=== PATIENT | female | born 1995 | race Caucasian/White ===

== ENCOUNTER 2017-08-17 20:06 | Emergency (ER) | payer OTHER ==
[~2017-08-17] VITALS: Ht 152.4 cm; Wt 51.3 kg
--- NOTE | 2017-08-17 20:15 | NUR ---
PT AMBULATORY TO ER BED 10. C/O R FLANK/ R RIB AREA PAIN X 4 DAYS. DENIES DYSURIA/HEMATURIA. PT IS ALSO C/O COUGH X 3 WEEKS. GOWNED AND PLACED ON MONITOR. VSS. AWAITINGMD EVAL.
--- NOTE | 2017-08-17 20:32 | NUR ---
DR MULLINS AT BEDSIDE FOR EVAL.
--- NOTE | 2017-08-17 20:33 | NUR ---
IV LINE STARTED BLOOD DRAW AND SENT TO LAB.
[2017-08-17] MEDS ORDERED: KETOROLAC TROMETHAMINE INJ 30 MG/ML VIAL ONE (20:37)
[2017-08-17 20:38] LABS: APPEARANCE,URINE Slightly Cloudy (CLEAR); BASOPHILS # (AUTO) 0.1 /CMM (0.0-0.2); BASOPHILS % (AUTO) 0.4 % (0.0-2.0); BILIRUBIN,URINE Negative (NEGATIVE); BLOOD, URINE Trace-lysed Ery/uL (NEGATIVE); COLOR,URINE Yellow (YELLOW); EOSINOPHILS % (AUTO) 7.6 % (0.0-6.0); HEMATOCRIT 39 % (33-45); HEMOGLOBIN 13.2 g/dL (11.5-14.8); KETONES,URINE Negative (NEGATIVE); LEUKOCYTE ESTERASE ,URINE Trace (NEGATIVE); LYMPHOCYTES % (AUTO) 30.3 % (20.0-44.0); MEAN CORPUSCULAR HEMOGLOBIN 30 PG (26.0-33.0); MEAN CORPUSCULAR HGB CONC 34 g/dl (31.0-36.0); MEAN CORPUSCULAR VOLUME 89 fL (82-100); MONOCYTES # (AUTO) 0.9 /CMM (0.1-1.30); MONOCYTES % (AUTO) 7.1 % (2.0-12.0); NEUTROPHILS # (AUTO) 7.2 /CMM (1.8-8.9); NEUTROPHILS % (AUTO) 54.6 % (43.0-81.0); NITRITE, URINE Negative (NEGATIVE); PLATELET COUNT (AUTO) 248 /CMM (150-450); PROTEIN,URINE Negative (NEGATIVE); RDW COEFFICIENT OF VARIATION 12.2 (11.5-15.0); UGLUCOSE Negative (NEGATIVE); WHITE BLOOD COUNT (AUTO) 13.2 K/uL (4.3-11.0)
[2017-08-17 20:41] LABS: BACTERIA,URINE Few /HPF (None Seen); SQUAMOUS EPITHELIAL CELL,UR Few /HPF (None Seen)
[2017-08-17 20:48] LABS: CALCIUM, SERUM 8.9 mg/dL (8.5-10.1); CREATININE 0.6 mg/dL (0.6-1.3); POTASSIUM 4.1 mmol/L (3.5-5.1)
[2017-08-17 20:53] LABS: ALBUMIN 4.1 g/dL (3.4-5.0); BILIRUBIN,DIRECT 0.1 mg/dL (0.0-0.2); BILIRUBIN,TOTAL 0.3 mg/dL (0.2-1.0); TOTAL PROTEIN, SERUM 7.8 g/dL (6.4-8.2)
[2017-08-17] MEDS ORDERED: KETOROLAC TROMETHAMINE INJ 30 MG/ML VIAL IV ONE (21:00)
[2017-08-17] MEDS ORDERED: IV NS 0.9% 1,000 ML BAG IV ONE (21:00)
[2017-08-17 21:25] VITALS: BP 115/60
--- NOTE | 2017-08-17 21:25 | NUR ---
Patient discharged to home in stable condition. Written and verbal after care instructions given. Patient verbalizes understanding of instruction.IV removed. Catheter intact and site benign. Pressure and 4x4 applied to site. No bleeding noted.
== END 2017-08-17 21:27 | disposition home or self-care (01) ==
LOC: ER 20:07
DX: N12 Tubulo-interstitial nephritis, not specified as acute or chronic (principal)
CPT/HCPCS: 36415; 80048; 80076; 81001; 83690; 84703; 85025; 87086; 96374; 99284; A4606; J1885; J7030; Z7610; 81000-TC

== ENCOUNTER 2017-08-25 21:48 | Emergency (ER) | payer OTHER ==
[~2017-08-25] VITALS: Ht 152.4 cm; Wt 51.3 kg
[2017-08-25 21:54] VITALS: BP 122/74
--- NOTE | 2017-08-25 22:00 | NUR ---
TO BED 8 A 22 YO FEMALE BIBHUSBAND W C/O GENERALIZED UTICARIA/ HIVES X 1 DAY. PATIENT IS AAOX4, NAD NOTED. VSS. BREATHING EVEN AND UNLABORED. NO SOB. COMFORT MEASURES RENDERED.
[2017-08-26] MEDS ORDERED: diphenhydrAMINE HCL 50 MG CAPSULE ONE (00:16)
[2017-08-26] MEDS ORDERED: FAMOTIDINE (20 MG) 20 MG TABLET ONE (00:17)
--- NOTE | 2017-08-26 00:20 | NUR ---
MEDICATE PATIENT ORDERED BY DR LARRY.
[2017-08-26] MEDS ORDERED: FAMOTIDINE (20 MG) 20 MG TABLET PO ONE (00:30)
[2017-08-26] MEDS ORDERED: diphenhydrAMINE HCL 25 MG CAPSULE PO ONE (00:30)
--- NOTE | 2017-08-26 00:55 | NUR ---
Patient discharged to home in stable condition. Written and verbal after care instructions given. Patient verbalizes understanding of instruction. ambulatory with a steady gait. Pt S/O at bedside to take pt home.
== END 2017-08-26 00:57 | disposition home or self-care (01) ==
LOC: ER 21:50
DX: L50.0 Allergic urticaria (principal)
CPT/HCPCS: 99283; A4606; Q0163; Z7610

== ENCOUNTER 2021-12-18 21:03 | Emergency (ER) | payer OTHER ==
[~2021-12-18] VITALS: Ht 152.4 cm; Wt 59.0 kg
--- NOTE | 2021-12-18 21:30 | NUR ---
BIBS. LOWER ABD CRAMPING, URINARY PAIN & FREQUENCY. PATIENT ALERT AND ORIENTED X3. AMBULATORY WITH NON LABORED BREATHING.
[2021-12-18 22:01] LABS: BILIRUBIN,URINE NEGATIVE (NEGATIVE); COLOR,URINE YELLOW (YELLOW); LEUKOCYTE ESTERASE ,URINE TRACE (NEGATIVE); NITRITE, URINE NEGATIVE (NEGATIVE); PROTEIN,URINE NEGATIVE (NEGATIVE); UGLUCOSE NEGATIVE (NEGATIVE)
[2021-12-18] MEDS ORDERED: IBUPROFEN 600 MG TABLET ONE (22:04)
[2021-12-18] MEDS ORDERED: CEPH500T PO (22:07)
[2021-12-18 22:08] VITALS: BP 124/77
--- NOTE | 2021-12-18 22:08 | NUR ---
Patient discharged to home in stable condition. Written and verbal after care instructions given. Patient verbalizes understanding of instruction.
[2021-12-18 22:15] LABS: BACTERIA,URINE 1+ /HPF (None Seen)
[2021-12-18] MEDS ORDERED: PHEN-704 PO (22:25)
[2021-12-18] MEDS ORDERED: IBUPROFEN 600 MG TABLET PO ONE (22:30)
== END 2021-12-18 22:30 | disposition home or self-care (01) ==
LOC: ER 21:10
DX: N39.0 Urinary tract infection, site not specified (principal); Z87.440 Personal history of urinary (tract) infections; Z79.891 Long term (current) use of opiate analgesic
CPT/HCPCS: 81001; 84703-TC; 87086-TC